=== PATIENT | male | born 1970 | race Caucasian/White ===

== ENCOUNTER 2017-03-29 08:43 | Emergency (ER) | payer BC, OTHER ==
[~2017-03-29] VITALS: Ht 175.3 cm; Wt 83.9 kg
--- OUTSIDE RECORDS SUMMARY | 2017-03-29 08:50 | XMS REPORT ---
Author Author Courtney Leigh [facility] Address [address] [place], [place] [id number] Care Team Providers Care Self Pay Specialist Name Role Phone Courtney Leigh PCP Allergies and Adverse Reactions Not available. Plan of Treatment Not available. Medications Not available. Problem List Not available. Vital Signs Not available. Social History Not available. History of Procedures Not available. Results Summary Not available. History Of Immunizations Not available. History of Past Illness Name Date of Onset Comments Drug screening, pre-employment Nov 03 2016 12:08PM Payers Insurance Name Company Name Plan Name Plan Number Policy Number Policy Group Number Start Date [facility] Occupational Medicine [id number] N/A History of Encounters Visit Date Visit Type Provider 11/03/2016 Laboratory Courtney VIERA
--- OUTSIDE RECORDS SUMMARY | 2017-03-29 08:50 | XMS REPORT | Clinical Summary ---
Author Author User, [employer] [facility] [place] Address Unknown Phone Unavailable Allergies, Adverse Reactions, Alerts Allergy Name Reaction Description Start Date Severity Status Provider No Known Allergies Faustinojessy Frey Conditions or Problems Problem Name Problem Code Onset Date Status Entry Date Provider Comment Standard Description Annotate HYPERCHOLESTEROLEMIA 272.0 Resolved Liz Mays Pure hypercholesterolemia WEIGHT GAIN, ABNORMAL 783.1 Resolved Liz Mays Abnormal weight gain ALLERGIC RHINITIS, SEASONAL 477.9 Resolved Liz Mays Allergic rhinitis, cause unspecified BRONCHITIS 490 Resolved Liz Mays Bronchitis, not specified as acute or chronic SINUSITIS 473.9 Resolved Liz Mays Unspecified sinusitis (chronic) BACK PAIN, LUMBAR 724.2 Resolved Liz Mays Lumbago BURSITIS, LEFT ELBOW 726.33 Resolved Liz Mays Olecranon bursitis SINUSITIS, SPHENOIDAL, ACUTE 461.3 Resolved Liz Mays Acute sphenoidal sinusitis BACK PAIN, THORACIC REGION, LEFT 724.1 Resolved Liz Mays Pain in thoracic spine ENLARGEMENT OF LYMPH NODES 785.6 Resolved Liz Mays Enlargement of lymph nodes WRIST PAIN 719.43 Resolved Liz Mays Pain in joint involving forearm SINUSITIS, SPHENOIDAL, ACUTE 461.3 Resolved Liz Mays Acute sphenoidal sinusitis DIZZINESS 780.4 Resolved Liz Mays Dizziness and giddiness BENIGN POSITIONAL VERTIGO 386.11 Resolved Liz Mays Benign paroxysmal positional vertigo SINUSITIS, SPHENOIDAL, ACUTE 461.3 Inactive Liz Mays Acute sphenoidal sinusitis HEALTH SCREENING V70.0 Active Liz Mays Routine general medical examination at a research [facility] facility Medication List Medication Instructions Start Date Stop Date Generic Name NDC Status Provider Patient Instruction ATARAX 25 MG TAB 1 PO AT HS HYDROXYZINE HCL No Longer Active Liz Mays ASPIRIN 81 MG CHEW 3 times a week ASPIRIN 27377837543 No Longer Active Liz Mays LIPITOR 10 MG TAB 1 PO QD ATORVASTATIN CALCIUM 88272853809 Active Liz Mays PREDNISONE 20 MG TAB 1 PO DAILY X 5 DAYS PREDNISONE 25136955627 No Longer Active Liz Mays CAMPBELL 180 MG TABS 1 PO BID X 7 DAYS FEXOFENADINE HCL No Longer Active Liz Mays PREDNISONE 20 MG TAB 1 PO daily for 4 days PREDNISONE 48751650847 No Longer Active Liz Mays LEVAQUIN 500 MG TAB 1 PO QD LEVOFLOXACIN 32292217534 No Longer Active Liz MIGUEL'S NASAL SPRAY (DEXAMETHASONE, GENTAMICIN, SALINE) 2 puffs each nostril TID for [address] MIGUEL'S NASAL SPRAY ( DEXAMETHASONE, GENTAMICIN, SALINE) No Longer Active Liz Mays VALIUM 2 MG TAB 1/2 PO QHS prn dizziness DIAZEPAM 05445407434 No Longer Active Liz Mays MECLIZINE HCL 25 MG TAB 1 PO Q6hrs prn dizziness MECLIZINE HCL 49070081704 No Longer Active Liz Mays AUGMENTIN 875-125 MG TAB 1 PO BID AMOXICILLIN-POT CLAVULANATE 94324955242 No Longer Active Liz GU NASAL SPRAY (DEXAMETHASONE, GENTAMICIN, SALINE) 2 puffs each nostril TID for [address] GU NASAL SPRAY ( DEXAMETHASONE, GENTAMICIN, SALINE) No Longer Active Liz Mays AUGMENTIN 875-125 MG TAB 1 PO BID AMOXICILLIN-POT CLAVULANATE 48339376011 No Longer Active Liz GU NASAL SPRAY (DEXAMETHASONE, GENTAMICIN, SALINE) 2 puffs each nostril TID for [address] GU NASAL SPRAY ( DEXAMETHASONE, GENTAMICIN, SALINE) No Longer Active Liz Mays FLEXERIL 10 MG TAB 1 PO TID prn CYCLOBENZAPRINE HCL 55309464451 No Longer Active Liz Mays AUGMENTIN 500-125 MG TAB 1 PO BID AMOXICILLIN-POT CLAVULANATE 37954179513 No Longer Active Liz GU NASAL SPRAY (DEXAMETHASONE, GENTAMICIN, SALINE) 2 puffs each nostril TID for [address] GU NASAL SPRAY ( DEXAMETHASONE, GENTAMICIN, SALINE) No Longer Active Liz GU NASAL SPRAY (DEXAMETHASONE, GENTAMICIN, SALINE) 2 puffs each nostril TID for [address] GU NASAL SPRAY ( DEXAMETHASONE, GENTAMICIN, SALINE) No Longer Active Alexandria Pantoja AUGMENTIN 500-125 MG TAB 1 PO BID AMOXICILLIN-POT CLAVULANATE 26053564096 No Longer Active Alexandria Pantoja PREDNISONE 20 MG TAB 3 PO daily for 1 day, 2 PO daily for 2 days, 1 PO daily for 2 days PREDNISONE [id number] No Longer Active Liz Mays PREDNISONE 20 MG TAB 3 PO daily for 2 days, 2 PO daily for 2 days then 1 PO daily for 2 days PREDNISONE [id number] No Longer Active Liz GU NASAL SPRAY (DEXAMETHASONE, GENTAMICIN, SALINE) 2 puffs each nostril TID DR. GU NASAL SPRAY (DEXAMETHASONE, GENTAMICIN, SALINE) No Longer Active Liz FITZPATRICK 12 HOUR TB12 1 PO BID for 10 days FEXOFENADINE-PSEUDOEPHEDRINE TB12 89001733927 No Longer Active Liz GU NASAL SPRAY (DEXAMETHASONE, GENTAMICIN, SALINE) 2 puffs each nostril TID DR. GU NASAL SPRAY (DEXAMETHASONE, GENTAMICIN, SALINE) No Longer Active Liz FITZPATRICK 12 HOUR TB12 1 PO BID FEXOFENADINE- PSEUDOEPHEDRINE TB12 02684433476 No Longer Active Liz Mays LEVAQUIN 500 MG TAB 1 PO QD LEVOFLOXACIN 68478165374 No Longer Active Liz GU NASAL SPRAY (DEXAMETHASONE, GENTAMICIN, SALINE) 2 puffs each nostril BID for [address] GU NASAL SPRAY ( DEXAMETHASONE, GENTAMICIN, SALINE) No Longer Active Jarrod Castro LEVAQUIN 500 MG TABS 1 po QD for 10 days LEVOFLOXACIN 68229213151 No Longer Active Jarrod Castro ROBITUSSIN A-C 10-100 MG/5ML SYRUP 5cc PO Q 4-6 hr prn ROBITUSSIN A-C 10-100 MG/5ML SYRUP 87020793904 No Longer Active Liz Mays AUGMENTIN 500-125 MG TAB 1 PO BID AMOXICILLIN-POT CLAVULANATE 30921263151 No Longer Active Liz Mays Vital Signs Date Name Value Unit Range Description blood pressure, diastolic - 8462-4 80 mm[Hg] BP rosas blood pressure, systolic - 8480-6 125 mm[Hg] BP sys pulse rate E&M - 8867-4 60 /min Heart rate respiratory rate E&M - 9279-1 14 /min Resp rate weight E&M - 3141-9 190 [lb_av] Weight Measured Diagnostic Results Date Name Value Unit Range Description Clinical Lists Update: CMP,FLP - Chemistry Estimated Glomerular Filtration Rate (calc) 102 mL/min/1.73m2 albumin, serum 4.9 g/dL glucose, plasma fasting 103 mg/dL alkaline phosphatase, serum 67 U/L urea nitrogen, blood 13 mg/dL calcium, serum 9.7 mg/dL chloride, serum 103 mmol/L anion gap, serum 13 sodium, serum 138 mmol/L bilirubin, serum, total 0.6 mg/dL alanine aminotransferase (SGPT), serum 50 U/L aspartate aminotransferase (SGOT), serum 31 U/L protein, total, serum 6.9 g/dL potassium, serum 4.5 mmol/L creatinine, serum 0.9 mg/dL carbon dioxide, venous blood 27.0 mmol/L Office Visit: Dr Mays's Check Up: Established Patient Visit - Chemistry HDL cholesterol, serum 48.0 mg/dL triglyceride, serum, fasting 159 mg/dL LDL cholesterol, serum 168 mg/dL cholesterol, serum 248 mg/dL cholesterol/HDL ratio, serum, percent 5.2 Encounters Code Encounter Date Provider Facility CPT-92871 Ofc Vst, Est Level III 15:24:49 [employer] Liztammi Mclean Mays, DO, FACP CPT-28881 Ofc Vst, Est Level IV 13:42:16 CDT Liz Natacha Mclean Mays, DO, FACP CPT-20617 Ofc Vst, Est Level III 14:30:01 CDT Liz Natacha Mclean Mays, DO, FACP CPT-34401 Ofc Vst, Est Level III 14:42:20 CDT Liz Natacha Mclean Mays, DO, FACP CPT-65580 Ofc Vst, Est Level IV 14:57:32 CDT Liz Natacha Mclean Mays, DO, FACP CPT-13348 Ofc Vst, Est Level IV 09:59:14 CDT Liz Natacha Mclean Mays, DO, FACP CPT-62820 Ofc Vst, Est Level IV 16:33:44 [employer] Liz Natacha Mclean Mays, DO, FACP CPT-55914 Ofc Vst, Est Level III 10:35:33 CDT Liz Natacha Mclean Mays, DO, FACP CPT-83350 Ofc Vst, Est Level III 17:32:35 [employer] Liz Mclean Davon, DO, FACP CPT-53082 Ofc Vst, Est Level III 16:30:08 [employer] Liz Mclean Davon, DO, FACP CPT-93027 Ofc Vst, Est Level II 15:55:58 CDT Liz Mays [facility] [place] CPT-21017 Ofc Vst, New Level III 18:00:23 CDT Liz Mays [facility] [place] Procedures Code Procedure Name Date Entry Date Standard Description CPT-20270 Preventive, Est, (40-64) 16:37:16 [employer]
--- OUTSIDE RECORDS SUMMARY | 2017-03-29 08:50 | XMS REPORT ---
Author Author Courtney Leigh [facility] Address [address] [place], [place] [id number] Care Team Providers Care Motorcycle Tester Name Role Phone Courtney Leigh PCP Allergies and Adverse Reactions Not available. Plan of Treatment Not available. Medications Not available. Problem List Not available. Vital Signs Not available. Social History Not available. History of Procedures Not available. Results Summary Not available. History Of Immunizations Not available. History of Past Illness Name Date of Onset Comments Drug screening, pre-employment Nov 03 2016 12:08PM Payers Not available. History of Encounters Visit Date Visit Type Provider 11/03/2016 Laboratory Courtney VIERA
--- OUTSIDE RECORDS SUMMARY | 2017-03-29 08:50 | XMS REPORT | Continuity of Care Document ---
Author Author [facility] Address Unknown Phone Unavailable Allergies Medications Problems Procedures Results Encounters ACCT No. Visit Date/Time Discharge Status Pt. Type Provider Facility Loc./Unit Complaint [id number] 11/05/2016 16:24:45 11/05/2016 23: 59:59 CLS Outpatient Courtney Leigh
[2017-03-29] MEDS ORDERED: ROSU5TAB9 (09:06)
[2017-03-29] MEDS ORDERED: PRD10T PO (09:27)
[2017-03-29] MEDS ORDERED: FAMO40TA72 PO (09:27)
--- NOTE | 2017-03-29 09:27 | ED Integumentary General ---
General Chief Complaint: Allergic Reaction Stated Complaint: ALLERGIC REACTION Nursing Triage Note: c/o hives scattered over body. No respiratory distress but feels like a "lump" in his throat. Finished Rx of Cefdinir and steroids for sinusitis yesterday. Source: patient History of Present Illness Time seen by provider: 09:05 Initial Comments PT STATES HE WOKE UP WITH A VERY ITCHY RASH/HIVES ALL OVER BODY INCLUDING PALMS AND SOLES SYMPTOMS ARE MUCH BETTER SINCE TAKING 50 MG BENADRYL AT 0745, BUT STATES HE HAS A SENSATION OF A LUMP IN HIS THROAT NO DIFFICULTY SWALLOWING OR BREATHING PT STATES HE HAS BEEN ON CEFDINIR X 10 DAYS-FINISHED YESTERDAY, AND PREDNISONE X 5 DAYS--FINISHED 5 DAYS AGO, FOR A SINUS INFECTION STATES THOSE SYMPTOMS HAVE RESOLVED NO HISTORY OF PRIOR ALLERGIC REACTIONS TO ANY MEDICATIONS, BUT DOES NOT THINK HE HAS BEEN ON THIS ANTIBIOTIC BEFORE PCP: DR. HAWLEY Allergies and Home Medications Allergies Coded Allergies: No Known Drug Allergies (Unverified , 03/29/17) Home Medications Famotidine 40 Mg Tablet, 40 MG PO DAILY, #30 Prescribed by: SHAD MORENO on 03/29/17 0927 Prednisone 10 Mg Tab, 40 MG PO DAILY, #12 Prescribed by: SHAD MORENO on 03/29/17 0927 Rosuvastatin Calcium 5 Mg Tablet, 5, (Reported) Constitutional: no symptoms reported EENTM: see HPI Respiratory: no symptoms reported Cardiovascular: no symptoms reported Gastrointestinal: no symptoms reported Genitourinary: no symptoms reported Musculoskeletal: no symptoms reported Skin: see HPI Psychiatric/Neurological: No Symptoms Reported Endocrine: No Symptoms Reported Hematologic/Lymphatic: No Symptoms Reported Past Puxahlq-Ptxymj-Tstanb Hx Patient Social History Alcohol Use: Occasionally Uses Recreational Drug Use: No Smoking Status: Never a Smoker Recent Foreign Travel: No Contact w/Someone Who Travel: No Recent Infectious Disease Expo: No Surgeries HX Surgeries: No Respiratory Hx Respiratory Disorders: No Cardiovascular Hx Cardiac Disorders: Yes Cardiac Disorders: High Cholesterol Neurological Hx Neurological Disorders: No Genitourinary Hx Genitourinary Disorders: No Gastrointestinal Hx Gastrointestinal Disorders: No Musculoskeletal Hx Musculoskeletal Disorders: No Endocrine Hx Endocrine Disorders: No HEENT HX ENT Disorders: No Cancer Hx Cancer: No Psychosocial Hx Psychiatric Problems: No Integumentary HX Skin/Integumentary Disorder: No Blood Transfusions Hx Blood Disorders: No Physical Exam Vital Signs Vital Sign - Last 12Hours 8/20/17 08:55 Temp 97.5 Pulse 76 Resp 16 B/P (MAP) 124/105 Pulse Ox 98 O2 Delivery Room Air Capillary Refill : Less Than 3 Seconds General Appearance: WD/WN, no apparent distress HEENT: PERRL/EOMI, normal ENT inspection, TMs normal, pharynx normal, other ( NO SWELLING TO LIPS, TONGUE, UVULA OR POSTERIOR PHARYNX. 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 PT STATES RASH WAS IN PALMS AND SOLES, BUT HAS RESOLVED NOW. SCALP AND FACE WERE SPARED. ) Progress/Results/Core Measures Results/Orders My Orders Orders - SHAD MORENO DO Methylprednisolone Sod Succ (Solu-Medrol (03/29/17 09:30) Famotidine Tablet (Pepcid Tablet) (03/29/17 09:30) Medications Given in ED Current Medications Medications Dose Ordered Sig/Huong Route Start Time Stop Time Status Last Admin Dose Admin Famotidine 40 mg ONCE ONCE PO 03/29/17 09:30 03/29/17 09:31 DC 03/29/17 09:47 40 MG Methylprednisolone Sodium Succinate 125 mg ONCE ONCE IM 03/29/17 09:30 03/29/17 09:31 DC 03/29/17 09:48 125 MG Vital Signs/I&O Vital Sign - Last 12Hours 03/29/17 03/29/17 08:55 10:07 Temp 97.5 97.5 Pulse 76 72 Resp 16 16 B/P (MAP) 124/105 Pulse Ox 98 98 O2 Delivery Room Air Blood Pressure Mean: 111 Departure Impression Impression: Primary Impression: Allergic reaction caused by a drug Disposition: 01 HOME, SELF-CARE Condition: Stable Departure-Patient Inst. Referrals: HIEU HAWLEY DO (PCP/Family) Primary Care Physician Patient Instructions: Drug Allergy Add. Discharge Instructions: CLARITIN OR ZYRTEC IN AM, BENADRYL IN PM NEEDED FOR RASH AND ITCHING FOLLOW UP WITH DR. HAWLEY TOMORROW IF NO BETTER, RETURN TO ER IF WORSE All discharge instructions reviewed with patient and/or family. Voiced understanding. Scripts Famotidine (Pepcid) 40 Mg Tablet 40 MG PO DAILY, #30 TAB Prov: SHAD MORENO DO 03/29/17 Prednisone (Prednisone) 10 Mg Tab 40 MG PO DAILY, #12 TAB Prov: SHAD MORENO DO 03/29/17 SHAD MORENO DO Mar 29, 2017 09:27
[2017-03-29] MEDS ORDERED: FAMOTIDINE 20 MG (PEPCID) TABLET PO ONE (09:30)
[2017-03-29] MEDS ORDERED: methylPREDNISolone 125 MG (Solu-MEDROL) VIAL IM ONE (09:30)
[2017-03-29 10:07] VITALS: BP 126/92
== END 2017-03-29 10:07 | disposition home or self-care (01) ==
LOC: ER 08:46
DX: L50.9 Urticaria, unspecified (principal); E78.00 Pure hypercholesterolemia, unspecified; T36.1X5A Adverse effect of cephalosporins and other beta-lactam antibiotics, initial encounter; T38.0X5A Adverse effect of glucocorticoids and synthetic analogues, initial encounter
CPT/HCPCS: 96372; 99284

== ENCOUNTER 2018-06-21 08:55 | Outpatient (CLI) | payer BC ==
[~2018-06-21 08:55] MED LIST: FAMO40TA72 PO; PRD10T PO; ROSU5TAB12
== END 2018-06-21 09:15 | disposition home or self-care (01) ==
LOC: SLEEP 08:55
PROVIDERS: ATTEND Nurse Practitioner
DX: G47.10 Hypersomnia, unspecified (principal); R06.83 Snoring

== ENCOUNTER → 2020-07-20 | Outpatient (CLI) | payer BC ==
[~2020-07-20] MED LIST changes: -ROSU5TAB12; +ROSU5TAB13
--- NOTE | 2020-07-20 11:36 | Diagnostic Imaging Report ---
EXAMINATION: Magnetic resonance imaging of the right knee without intravenous contrast DATE: July 20, 2020. COMPARISON: None. INDICATION: 49-year-old male, increasing right knee pain. TECHNIQUE: Multiplanar, multisequence non contrast enhanced MR imaging was accomplished. FINDINGS: MENISCI: The medial meniscus is intact. There is an extensive multidirectional tear involving the anterior horn, body, and posterior horn of the lateral meniscus. LIGAMENTS AND TENDONS: The anterior and posterior cruciate ligaments are intact. The medial collateral ligament is intact. The iliotibial band, mid third lateral capsular ligament, fibular collateral ligament, biceps femoris tendon and conjoined tendon are intact. The quadriceps tendon and patella ligament are intact. JOINT: There is full-thickness fissuring and irregularity of the cartilage of the posterior weightbearing portion of the lateral femoral condyle measuring approximately 10 mm in medial to lateral extent and having an anterior posterior extent of approximately 15 mm. The medial and patellofemoral compartment cartilage is intact. There is a trace knee joint effusion. There is no identified intra-articular body or prominent synovitis. BONE: There is intraosseous ganglion cyst formation in the distal femur near the intracondylar notch. There is degenerative related marrow edema in the lateral femoral condyle. There is no acute fracture, bone contusion, or evidence of osteonecrosis. 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 There are small bodies present within the Thomason's cyst dependently. IMPRESSION: 1. Extensive tearing of the entire lateral meniscus. 2. Intact medial meniscus. 3. Intact anterior and posterior cruciate ligaments. Additional ligaments and tendons are intact. 4. Moderate lateral compartment osteoarthritis with trace knee joint effusion. 5. No acute fracture, bone contusion, or evidence of osteonecrosis. 6. 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 Dictated by: Dictated on workstation # [id number]
== END ==
LOC: RAD 07-13 08:00
PROVIDERS: ATTEND Nurse Practitioner
DX: S83.241A Other tear of medial meniscus, current injury, right knee, initial encounter (principal); X58.XXXA Exposure to other specified factors, initial encounter; M71.21 Synovial cyst of popliteal space [Baker], right knee; M17.11 Unilateral primary osteoarthritis, right knee
CPT/HCPCS: 73721